=== PATIENT | male | born 1945 | race Caucasian/White ===

== ENCOUNTER 2016-11-20 11:47 | Emergency (ER) | payer MEDICARE ==
--- NOTE | 2016-11-20 12:31 | RAD ---
CHEST - 2 VIEWS COMPARISON: Chest 2 views, 01/31/2016 HISTORY: Cough and syncope FINDINGS: Views: Frontal and lateral chest Lungs: No acute finding. Transverse linear scars in both lung bases. Heart and vessels: Normal Trachea and bronchi: Normal Mediastinum and bryce: Normal Costophrenic sulci: Normal Chest wall and bones: Normal. Upper abdomen: Normal. IMPRESSION: Negative 2 view chest.
== END 2016-11-20 12:52 | disposition home or self-care (01) ==
LOC: ED 11:47
DX: R55 Syncope and collapse (principal); R05 Cough; I10 Essential (primary) hypertension; E07.9 Disorder of thyroid, unspecified